=== PATIENT | female | born 1950 | race Caucasian/White ===

== ENCOUNTER 2022-06-24 17:22 | Emergency (ER) | payer MEDICARE, SELFPAY ==
[2022-06-24 17:34] VITALS: BP 133/70; PULSE 71; RESP 16; TEMP 36.6; O2SAT 100
--- NOTE | 2022-06-24 17:49 | ED.WOUNDLAC ---
HPI - Wound/Laceration General Chief Complaint: Wound/Laceration Stated Complaint: lt thumb injury Time Seen by Provider: 06/24/22 17:50 Source: patient Mode of arrival: ambulatory Limitations: no limitations History of Present Illness HPI narrative: 71 y/o female presented for c/o laceration to left ring finger about 2 hours prior to arrival. States she cut the finger on gardening scissors while pruning a woods. She applied pressure immediately, bleeding is controlled. Unsure of last tetanus. Related Data Home Medications Medication Instructions Recorded Confirmed gabapentin 300 mg capsule mg 06/24/22 lamotrigine 25 mg tablet mg 06/24/22 risedronate 35 mg tablet mg PO 06/24/22 Allergies Allergy/AdvReac Type Severity Reaction Status Date / Time No Known Allergies Allergy Unknown Unverified 12/09/16 02:06 Review of Systems Review of Systems: CONSTITUTIONAL: Denies body aches, fever, chills, or sweats. CARDIOVASCULAR: Denies chest pain, palpitations, or edema. RESPIRATORY: Denies cough or dyspnea. SKIN: reports laceration MUSCULOSKELETAL: Denies back pain, joint pain, or myalgia. NEUROLOGIC: Denies numbness, tingling, or weakness. PMFSH Comments At time of signature, I have reviewed and agree with nursing past medical, surgical, social and family history unless otherwise noted. Please see nursing chart for further information. There is no relevant family history pertinent to the presenting complaint Exam Narrative: GENERAL: Well-appearing EYES: conjunctivae clear, and EOMI. ENT: Mucous membranes moist. Oropharynx without edema, erythema or lesions. CHEST: Clear to auscultation. HEART: Regular rate and rhythm. SKIN: Warm, dry. Left 4th finger with 1cm linear laceration to distal phalanx ulnar aspect. Bleeding controlled. ROM, sensation, and circulation intact. NEURO: Alert and oriented x3. Course Course Emergency Course: Patient is aware of diagnosis, understands and agrees to treatment plan. Anticipatory guidance given. Patient agrees to follow-up as directed and is aware of reasons to seek care at the emergency department. Portions of this record may have been created with voice recognition software Level of Care: Express Care Visit Vital Signs Vital signs: Vital Signs Temperature 97.9 F 06/24/22 17:34 Pulse Rate 71 06/24/22 17:34 Respiratory Rate 16 06/24/22 17:34 Blood Pressure 133/70 06/24/22 17:34 Pulse Oximetry 100 06/24/22 17:34 Oxygen Delivery Room Air 06/24/22 17:34 Temperature 97.9 F 06/24/22 17:34 Pulse Rate 71 06/24/22 17:34 Respiratory Rate 16 06/24/22 17:34 Blood Pressure 133/70 06/24/22 17:34 Pulse Oximetry 100 06/24/22 17:34 Oxygen Delivery Room Air 06/24/22 17:34 Reviewed Procedures Laceration left 4th finger: Date: 06/24/22 Size (cm): 1 Description: linear and clean Depth: simple, single layer Pre-repair: wound explored and irrigated ====== Skin Level ====== Skin layer closed with: dermabond and steri strips ====== Subcutaneous Layer ====== ====== Muscle Layer ====== ====== Tendon Layer ====== Dressing: Pt tolerate well MDM - Wound/Laceration MDM Narrative Medical decision making narrative: Laceration repaired, tetanus updated today. Advised supportive measures and signs/symptoms to go to the ER. Pt is appropriate for outpt treatment and f/u. Differential Diagnosis Differential diagnosis: Likely laceration, abrasion and avulsion of skin Discharge Plan Discharge Clinical Impression: Laceration Patient Disposition: Home, Self-Care Condition: Stable Instructions: Laceration (ED), Skin Adhesive Care (ED), Steristrips (ED) Additional Instructions: The glue will fall off in 5 to 10 days Steri-Strips will roll off on their own within 14 days, you can trim the edges Do not soak your incision, go swimming, or sit in a hot tub f
[2022-06-24] MEDS: TETANUS,DIPHTHERIA,AC PERTUSSIS ADULT (0.5 ML) BOOSTRIX IM (18:18)
== END 2022-06-24 18:30 | disposition home or self-care (01) ==
PROVIDERS: Emergency Provider Nurse Practitioner Family
DX: S61.215A Laceration without foreign body of left ring finger without damage to nail, initial encounter (principal); W27.1XXA Contact with garden tool, initial encounter; Z23 Encounter for immunization
CPT/HCPCS: 12001; 90471; 90715; 99202; G0463

== ENCOUNTER 2023-03-29 15:26 | Emergency (ER) | payer MEDICARE, SELFPAY ==
[2023-03-29 15:59] VITALS: BP 117/76; PULSE 70; RESP 16; TEMP 36.9; O2SAT 98
--- NOTE | 2023-03-29 16:22 | ED.WOUNDLAC ---
HPI - Wound/Laceration General Chief Complaint: Wound/Laceration Stated Complaint: FINGER LACERATION Time Seen by Provider: 03/29/23 16:12 Source: patient, RN notes reviewed and old records reviewed Mode of arrival: ambulatory Limitations: no limitations History of Present Illness HPI narrative: 72 year old female accompanied by spouse presents to express care with complaints of laceration to her left distal radial side index finger from a cut with a knife after cutting baguette bread. Patient has no injury to nail small amount of active bleeding noted, pressure applied to site and bleeding decreased. Patient arrived with paper towel wrapped tightly to left index finger wound. Patient has full movment of her left index finger with no tingling or numbness, nail bed blanches briskly, strong left radial pulse. Patient's tetanus is up to date. Onset (ago): hour(s) (within past hour prior to arrival) Location: other (left index finger) Place: home Patient tetanus UTD: Yes Treatments prior to arrival: bandage Related Data Home Medications Medication Instructions Recorded Confirmed gabapentin 300 mg capsule 900 mg PO TID 06/24/22 03/29/23 lamotrigine 25 mg tablet 75 mg PO BID 06/24/22 03/29/23 Allergies Allergy/AdvReac Type Severity Reaction Status Date / Time No Known Allergies Allergy Unknown Verified 03/29/23 15:53 Review of Systems Review of Systems: CONSTITUTIONAL: Denies fever, chills, or sweats. CARDIOVASCULAR: Denies chest pain, palpitations, or edema. RESPIRATORY: Denies cough or dyspnea. SKIN: Reports laceration of left index finger distal radial side with no injury to nail MUSCULOSKELETAL: Denies musculoskeletal pain NEUROLOGIC: Denies numbness, or weakness. All systems reviewed & are unremarkable except as noted in HPI and below [facility] Past Medical History Medical History (Updated 03/31/23 @ 12:07 by Nadja Stringer NP) GERD (gastroesophageal reflux disease) Trigeminal neuralgia Surgical History Surgical History (Updated 03/31/23 @ 11:55 by Nadja Stringer NP) H/O bilateral mastectomy Braca + H/O: hysterectomy History of bladder surgery History of tonsillectomy Social History Social History (Updated 03/31/23 @ 11:54 by Nadja Stringer NP) Smoking status: Never smoker Alcohol intake: current Alcohol use details: social Substance use: never Substance use type: does not use Living arrangements: with family Gender identity (if verbalized by the patient): Female Comments At time of signature, agree with nursing past medical, surgical, social and family history. There is no relevant family history pertinent to the presenting complaint Exam Narrative: GENERAL: Well-appearing, well-nourished, and in no acute distress. HEAD: Normocephalic, atraumatic. NECK: Supple.no lymphadenopathy CHEST: Clear to auscultation. No respiratory distress.SAO2 98% on room air HEART: Regular rate and rhythm. No murmur heard. Normal peripheral pulses. EXTREMITIES: Normal range of motion. No edema. SKIN: Warm, dry, no rash. Reports laceration to distal radial side of left index finger from cut with knife, no nail bed injury noted.Patient denies any tingling or numbness to her left index finger with full mobility of finger, sensation intact NEURO: No focal deficits. Alert and oriented x3. Course Course Level of Care: Express Care Visit Vital Signs Vital signs: Vital Signs Temperature 36.9 C 03/29/23 15:59 Pulse Rate 70 03/29/23 15:59 Respiratory Rate 16 03/29/23 15:59 Blood Pressure 117/76 03/29/23 15:59 Pulse Oximetry 98 03/29/23 15:59 Oxygen Delivery Room Air 03/29/23 15:59 Temperature 36.9 C 03/29/23 15:59 Pulse Rate 70 03/29/23 15:59 Respiratory Rate 16 03/29/23 15:59 Blood Pressure 117/76 03/29/23 15:59 Pulse Oximetry 98 03/29/23 15:59 Oxygen Delivery Room Air 03/29/23 15:59 Procedures Laceration left distal lateral index
== END 2023-03-29 17:09 | disposition home or self-care (01) ==
PROVIDERS: Emergency Provider Registered Nurse
DX: S61.211A Laceration without foreign body of left index finger without damage to nail, initial encounter (principal); W26.0XXA Contact with knife, initial encounter; Y93.G1 Activity, food preparation and clean up; K21.9 Gastro-esophageal reflux disease without esophagitis
CPT/HCPCS: 12001; 99213; G0463